=== PATIENT | female | born 1950 | race Caucasian/White ===

== ENCOUNTER 2018-10-25 06:42 | Day surgery (SDC) | payer MEDICARE, MEDICAID ==
[2018-10-25] MEDS ORDERED: PROPARACAINE 0.5% OPHTH DROPS 15 ML ONE (06:54)
[2018-10-25] MEDS ORDERED: CYCLOPENTOLATE 1% OPHTH DROPS 2 ML ONE (06:54)
[2018-10-25] MEDS ORDERED: PHENYLEPHRINE 2.5% OPHTH 2 ML DROPS ONE (06:54)
[2018-10-25] MEDS ORDERED: KETOROLAC 0.45% OPHTH DROPS ONE (06:54)
[2018-10-25] MEDS ORDERED: LACTATED RINGERS 500 ML IV ONE (07:04)
[2018-10-25] MEDS ORDERED: KETOROLAC 0.45% OPHTH DROPS RIGHTEYE ONE (07:04)
[2018-10-25] MEDS ORDERED: CYCLOPENTOLATE 1% OPHTH DROPS 2 ML RIGHTEYE ONE (07:04)
[2018-10-25] MEDS ORDERED: PHENYLEPHRINE 2.5% OPHTH 2 ML DROPS RIGHTEYE ONE (07:05)
[2018-10-25] MEDS ORDERED: EPINEPHrine 1 MG/ML AMP ONE (07:06)
[2018-10-25] MEDS ORDERED: TIMOLOL 0.5% OPHTH DROPS ONE (07:06)
[2018-10-25] MEDS ORDERED: BRIMONIDINE 0.2% OPHTH DROPS 5 ML ONE (07:06)
[2018-10-25] MEDS ORDERED: TRIAMCIN/MOXIFLOX OPHTHALMIC 0.6 ML VIAL IO ONE ×2 (07:06→08:03)
[2018-10-25] MEDS ORDERED: BSS/LIDOCAINE/EPINEPHRINE 1 ML SYRINGE ONE (07:07)
[2018-10-25] MEDS ORDERED: VANCOMYCIN OPHTHALMI 8MG/0.8ML 8 MG/0.8 ML SYRINGE IO ONE ×2 (07:07→08:03)
--- NOTE | 2018-10-25 07:21 | ANESTHESIA ---
Pre-Anesthesia VS, & Labs - Diagnosis senile combined cataract right - Procedure extraction cataract with lens implant Vital Signs: Temp Pulse Resp BP Pulse Ox 36.8 C 80 18 136/87 H 97 10/25/18 06:54 10/25/18 06:54 10/25/18 06:54 10/25/18 06:54 10/25/18 06:54 Height 5 ft 5 in Weight (kg) 81.1 kg - NPO >8 hours - Is Patient ?: Not Applicable Home Medications and Allergies Home Medications: Ambulatory Orders Atenolol 50 mg PO DAILY 10/24/18 Cholecalciferol [Vitamin D3] 5,000 unit PO DAILY 10/24/18 Citalopram Hydrobromide [Citalopram HBr] 40 mg PO DAILY 10/24/18 Lisinopril 40 mg PO DAILY 10/24/18 Atenolol 50 mg PO DAILY 10/24/18 Cholecalciferol [Vitamin D3] 5,000 unit PO DAILY 10/24/18 Citalopram Hydrobromide [Citalopram HBr] 40 mg PO DAILY 10/24/18 Lisinopril 40 mg PO DAILY 10/24/18 Allergies/Adverse Reactions: Allergies Allergy/AdvReac Type Severity Reaction Status Date / Time No Known Drug Allergies Allergy Verified 10/25/18 07:09 Anes History & Medical History - Anesthetic History Anesthesia Complications: reports: No previous complications Family history of Anesthesia Complications: Denies Family history of Malignant Hyperthermia: Denies - Medical History Cardiovascular: reports: Hypertension Pulmonary: reports: None Gastrointestinal: reports: None Urinary: reports: None Musculoskeletal: reports: Osteoarthritis Endocrine/Autoimmune: reports: None Skin: reports: None Psychosocial: reports: Depression, Anxiety - Surgical History General: Appendectomy Gynecologic: Hysterectomy, Other Exam General: Alert, Oriented x3, Cooperative, No acute distress Dental: WNL Mouth Openin Fingerbreadth Neck Mobility: Normal Mallampati classification: II Thyromental Distance: 4-6 cm Respiratory: Lungs clear, Normal breath sounds, No respiratory distress, No accessory muscle use Cardiovascular: Normal S1, Normal S2 Mental/Cognitive Status: Alert/Oriented X3, Normal for patient Plan Anesthesia Type: MAC Consent for Procedure(s) Verified and Reviewed: Yes Code Status: Attempt Resuscitation ASA classification: 2-Mild systemic disease Is this case an emergency?: No
[2018-10-25] MEDS ORDERED: EPINEPHrine 1 MG/ML AMP IVP ONE (08:02)
[2018-10-25] MEDS ORDERED: BRIMONIDINE 0.2% OPHTH DROPS 5 ML OPTH ONE (08:02)
[2018-10-25] MEDS ORDERED: CHONDR SULF/HYALURONATE SYRINGE IO ONE (08:02)
[2018-10-25] MEDS ORDERED: TIMOLOL 0.5% OPHTH DROPS OPTH ONE (08:02)
[2018-10-25] MEDS ORDERED: BSS/LIDOCAINE/EPINEPHRINE 1 ML SYRINGE IO ONE (08:03)
[2018-10-25] MEDS ORDERED: fentaNYL 100 MCG/2 ML VIAL IVP ONE (08:16)
[2018-10-25] MEDS ORDERED: MIDAZOLAM 2 MG/2 ML VIAL IVP ONE (08:16)
[2018-10-25 08:19] VITALS: BP 91/60
--- NOTE | 2018-10-25 10:47 | OPERATIVE REPORT ---
DATE OF SERVICE: 10/25/2018 Physician: Milton Cabral MD PREOPERATIVE DIAGNOSIS: Visually significant cataract, right eye. This was her first cataract surge ry. POSTOPERATIVE DIAGNOSIS: Visually significant cataract, right eye. This was her first cataract surg oscar. NAME OF PROCEDURE: Phacoemulsification with posterior chamber intraocular lens implant, right eye. SURGEON: Milton Cabral MD ANESTHESIA: Monitored anesthesia care. COMPLICATIONS: None. OPERATIVE INDICATIONS: This is a 68-year-old woman with progressive vision loss in the right eye due to a 3+ nuclear sclerotic and 3+ posterior subcapsular cataract. Best corrected visual acuity was 2 0/20, with glare to hand motion vision in the right eye. Indications for surgery are overall decreas e in vision, difficulty seeing words on a computer screen, difficulty reading, difficulty seeing stre et signs, difficulty driving in low light or at night, difficulty driving at night because of headlig hts from other vehicles, and difficulty with glare or bright lights in any situation. She was consen christi at length concerning risks and benefits of cataract surgery, after which she expressed a desire t o proceed with surgery. OPERATIVE PROCEDURE: The patient was taken to OR #3 and placed under monitored anesthesia care. A s urgical timeout was conducted confirming correct patient, correct procedure, and correct surgical sit e. She was given topical anesthesia, and then prepped and draped in the usual sterile fashion. The eye was entered at the 12 and 9 o'clock positions. Intracameral Shugarcaine was injected into the an terior chamber, followed by Viscoat. A continuous-tear curvilinear capsulorrhexis was performed. Th e nucleus was hydrodissected and phacoemulsified. The cortex was evacuated using the automated infus ion and aspiration. Provisc was injected in the capsular bag, and a 22.0 diopter intraocular lens in serted in the bag. Approximately 0.8 mL of a mixture of triamcinolone, moxifloxacin and vancomycin w as injected subconjunctivally in the superior quadrant for infection and inflammation prophylaxis. I and A was used to evacuate the viscoelastic materials. The eye was inflated to physiologic pressure using balanced salt solution, and found to be watertight. The patient was taken from the operating room in good condition and given postop instructions. TD: 10/25/2018 08:28
== END 2018-10-25 06:43 | disposition home or self-care (01) ==
LOC: SDS 06:42
PROVIDERS: ATTEND Ophthalmology
PROC: 08RJ3JZ Replacement of Right Lens with Synthetic Substitute, Percutaneous Approach (ICD-10-PCS; principal; 2018-10-25 08:00)
DX: H25.811 Combined forms of age-related cataract, right eye (principal); I10 Essential (primary) hypertension; F17.200 Nicotine dependence, unspecified, uncomplicated
CPT/HCPCS: 66984; A9270; J3490; V2632

== ENCOUNTER 2018-12-27 06:34 | Day surgery (SDC) | payer MEDICARE, MEDICAID ==
[~2018-12-27 06:34] MED LIST: CYCLOPENTOLATE 1% OPHTH DROPS 2 ML ONE; KETOROLAC 0.45% OPHTH DROPS ONE; PHENYLEPHRINE 2.5% OPHTH 2 ML DROPS ONE; PROPARACAINE 0.5% OPHTH DROPS 15 ML ONE
[2018-12-27] MEDS ORDERED: LACTATED RINGERS 500 ML IV ONE (06:38)
[2018-12-27] MEDS ORDERED: PHENYLEPHRINE 2.5% OPHTH 2 ML DROPS LEFTEYE ONE (06:55)
[2018-12-27] MEDS ORDERED: CYCLOPENTOLATE 1% OPHTH DROPS 2 ML LEFTEYE ONE (06:55)
[2018-12-27] MEDS ORDERED: KETOROLAC 0.45% OPHTH DROPS LEFTEYE ONE (06:55)
[2018-12-27] MEDS ORDERED: PROPARACAINE 0.5% OPHTH DROPS 15 ML LEFTEYE ONE ×2 (06:55→08:04)
[2018-12-27] MEDS ORDERED: TIMOLOL 0.5% OPHTH DROPS ONE (07:11)
[2018-12-27] MEDS ORDERED: BRIMONIDINE 0.2% OPHTH DROPS 5 ML ONE (07:11)
[2018-12-27] MEDS ORDERED: BSS/LIDOCAINE/EPINEPHRINE 1 ML SYRINGE ONE (07:11)
[2018-12-27] MEDS ORDERED: TRIAMCIN/MOXIFLOX OPHTHALMIC 0.6 ML VIAL IO ONE ×2 (07:11→08:07)
[2018-12-27] MEDS ORDERED: VANCOMYCIN OPHTHALMI 8MG/0.8ML 8 MG/0.8 ML SYRINGE IO ONE ×2 (07:11→08:06)
--- NOTE | 2018-12-27 07:19 | ANESTHESIA ---
Pre-Anesthesia VS, & Labs - Diagnosis L senile combined cataract - Procedure L extraction cataract with IOL Vital Signs: Temp Pulse Resp BP Pulse Ox 36.8 C 77 16 176/97 H 96 12/27/18 06:39 12/27/18 06:39 12/27/18 06:39 12/27/18 06:39 12/27/18 06:39 Height 5 ft 5 in Weight (kg) 83 kg - NPO >8 hours - Is Patient ?: No Home Medications and Allergies Atenolol 50 mg PO DAILY 10/24/18 Cholecalciferol [Vitamin D3] 5,000 unit PO DAILY 10/24/18 Citalopram Hydrobromide [Citalopram HBr] 40 mg PO DAILY 10/24/18 Lisinopril 40 mg PO DAILY 10/24/18 Allergies/Adverse Reactions: Allergies Allergy/AdvReac Type Severity Reaction Status Date / Time No Known Drug Allergies Allergy Verified 10/25/18 07:09 Anes History & Medical History - Anesthetic History Anesthesia Complications: reports: No previous complications Family history of Anesthesia Complications: Denies Family history of Malignant Hyperthermia: Denies - Medical History Cardiovascular: reports: Hypertension Pulmonary: reports: None Gastrointestinal: reports: None Urinary: reports: None Musculoskeletal: reports: Osteoarthritis Endocrine/Autoimmune: reports: None Skin: reports: None Smoking Status: Current every day smoker - Surgical History General: Appendectomy Eyes Ears Nose Throat (EENT): Cataracts Gynecologic: Hysterectomy, Other Exam General: Alert, Oriented x3, Cooperative Dental: WNL Mouth Openin Fingerbreadth Mallampati classification: II Thyromental Distance: 4-6 cm Respiratory: Lungs clear, Normal breath sounds Cardiovascular: Regular rate Neurological: Normal speech Mental/Cognitive Status: Alert/Oriented X3, Normal for patient Plan Anesthesia Type: MAC Consent for Procedure(s) Verified and Reviewed: Yes Code Status: Attempt Resuscitation ASA classification: 2-Mild systemic disease Is this case an emergency?: No
[2018-12-27] MEDS ORDERED: BRIMONIDINE 0.2% OPHTH DROPS 5 ML OPTH ONE (08:05)
[2018-12-27] MEDS ORDERED: EPINEPHrine 1 MG/ML AMP IVP ONE (08:05)
[2018-12-27] MEDS ORDERED: CHONDR SULF/HYALURONATE SYRINGE IO ONE (08:05)
[2018-12-27] MEDS ORDERED: TIMOLOL 0.5% OPHTH DROPS OPTH ONE (08:05)
[2018-12-27] MEDS ORDERED: BSS/LIDOCAINE/EPINEPHRINE 1 ML SYRINGE IO ONE (08:06)
[2018-12-27] MEDS ORDERED: MIDAZOLAM 2 MG/2 ML VIAL IVP ONE (08:10)
[2018-12-27 08:55] VITALS: BP 102/61
--- NOTE | 2018-12-27 09:41 | OPERATIVE REPORT ---
DATE OF SERVICE: 12/27/2018 Physician: Milton Cabral MD PREOPERATIVE DIAGNOSIS: Visually significant cataract, left eye. Cataract surgery was performed on the right eye on 25 October 2018. POSTOPERATIVE DIAGNOSIS: Visually significant cataract, left eye. Cataract surgery was performed on the right eye on 25 October 2018. PROCEDURE: Phacoemulsification with posterior chamber intraocular lens implant, left eye. SURGEON: Milton Cabral MD ANESTHESIA: Monitored anesthesia care. COMPLICATIONS: None. OPERATIVE INDICATIONS: This is a 68-year-old woman with progressive vision loss in the left eye due to 3+ nuclear sclerotic and vacuole cataract. Best corrected visual acuity was 20/20, with glare to 20/400 in the left eye. Indications for surgery were difficulty seeing words on the computer screen and difficulty reading. She was consented at length concerning risks and benefits of cataract surgery, after which she expressed a desire to proceed with surgery. OPERATIVE PROCEDURE: Patient was taken to OR #3 and placed under monitored anesthesia care. A surgical timeout was conducted confirming the correct patient, correct procedure, and correct surgical site. She was given topical anesthesia, and then prepped and draped in the usual sterile fashion. The eye was entered at the 6 and 3-o'clock positions. Intracameral Shugarcaine was injected into the anterior chamber, followed by Viscoat. A continuous-tear curvilinear capsulorrhexis was performed. The nucleus was hydrodissected and phacoemulsified. The cortex was evacuated using automated infusion and aspiration. Provisc was injected into the capsular bag and a 23.0-diopter intraocular lens inserted in the bag. Approximately 0.8 mL of a mixture of triamcinolone, moxifloxacin, and vancomycin was injected subconjunctivally in the superior quadrant for infection and inflammation prophylaxis. I and A was used to evacuate the viscoelastic materials. The eye was inflated to physiologic pressure using balanced salt solution and found to be watertight. Patient was taken from the operating room in good condition and given postop instructions. TD: 12/27/2018 08:30 REVISED TEXT/DATES jll12/31/18 ORIG. signed 12/28/2018@0825 MTDD
== END 2018-12-27 06:35 | disposition home or self-care (01) ==
LOC: SDS 06:34
PROVIDERS: ATTEND Ophthalmology
PROC: 08RK3JZ Replacement of Left Lens with Synthetic Substitute, Percutaneous Approach (ICD-10-PCS; principal; 2018-12-27 10:00)
DX: H25.812 Combined forms of age-related cataract, left eye (principal); I10 Essential (primary) hypertension; M19.90 Unspecified osteoarthritis, unspecified site; F17.200 Nicotine dependence, unspecified, uncomplicated; F41.9 Anxiety disorder, unspecified; F32.9 Major depressive disorder, single episode, unspecified
CPT/HCPCS: 66984; A9270; J3490; V2632

== ENCOUNTER 2019-01-31 13:42 | Outpatient (CLI) | payer MEDICARE, MEDICAID ==
--- NOTE | 2019-02-02 15:04 | CT Report ---
Reason: PREVENTIVE CARE,PERSONAL HISTORY OF NICOTINE DEPEN Procedure Date: 01/31/2019 Accession Number: [id number] / [id number] Procedure: CT - Low Dose Lung Cancer Screen CPT Code: FULL RESULT: EXAM CT LUNG SCREEN EXAM DATE: 01/31/2019 02:20 PM. HISTORY: 68-year-old patient with 30+-pack-year smoking history. Currently smoking: Yes. COMPARISON: None. TECHNIQUE: CT examination of the entire thorax without contrast was performed using low-dose technique. Thin section coronal, axial, sagittal and MIP axial images were obtained. In accordance with CT protocol optimization, one or more of the following dose reduction techniques were utilized for this exam: automated exposure control, adjustment of mA and/or KV based on patient size, or use of iterative reconstructive technique. FINDINGS: Nodules: Right upper lobe: 2 mm solid nodule (4/31) 2 mm solid nodule (4/43) Anterolateral subpleural nodular opacity measuring 10 x 6 mm (4/70) has appearance of linear scarring/atelectasis on orthogonal views, appears to be associated with the minor fissure. Right middle lobe: None. Right lower lobe: 4 mm nodular opacity abutting the major fissure (4/87), likely perifissural lymph node. Left upper lobe: There is a linear left upper lobe/lingular scarring/atelectasis. No discrete nodules. Left lower lobe: None. Emphysema: None. Pleura: Unremarkable. Aorta: Mild ascending aortic ectasia measuring up to 41 mm. Scattered mild atherosclerotic calcification. Mediastinum: Heart size is normal. No lymphadenopathy. Coronary calcifications: Minimal. Other pulmonary findings: None. Other extrapulmonary findings: Right breast surgical clips. IMPRESSION: Lung-RADS ASSESSMENT CATEGORY: 2 - Benign appearance or behavior. Probability of malignancy: <1% RECOMMENDATION: Continue annual screening with low-dose chest CT in 12 months. RADIA
--- NOTE | 2019-02-04 08:28 | DEXA Report ---
Reason: PREVENTIVE CARE,PERSONAL HISTORY OF NICOTINE DEPEN Procedure Date: 01/31/2019 Accession Number: [id number] / [id number] Procedure: DEX - Dexa Spine and/or Hip CPT Code: FULL RESULT: EXAM: Dexa Spine and/or Hip DATE: 01/31/2019 2:08 PM CLINICAL HISTORY: PREVENTIVE CARE,PERSONAL HISTORY OF NICOTINE DEPEN TECHNIQUE: Dual energy x-ray absorptiometry (DXA) was performed on a [employer]. Regions measured are the AP Spine, femoral neck, and if needed forearm. COMPARISON: None. In accordance with the International Society for Clinical Densitometry (ISCD) guidelines, data from previous exams may be reanalyzed using current recommendations and techniques. This is done to allow a more accurate basis for comparison with the current study. FINDINGS: The data for the lumbar spine is as follows: BMD (g/cm/cm) T-SCORE Z-SCORE REGION L1 0.924 -1.7 -0.7 L2 1.083 -1.0 0.1 L3 1.149 -0.4 0.6 L4 1.166 -0.3 0.8 TOTAL 1.086 -0.8 0.3 NOTE: All evaluable vertebrae are used for classification The data for the hip is as follows: BMD (g/cm/cm) T-SCORE Z-SCORE REGION Neck 0.890 -1.1 0.1 TOTAL 0.969 -0.3 0.6 NOTE: The femoral neck or total proximal femur, whichever is lowest, is used for classification. IMPRESSION: THE WHO CLASSIFICATION BASED ON THE INTERNATIONAL REFERENCE STANDARD IS OSTEOPENIA. THE FRACTURE RISK IS INCREASED. RECOMMENDATION: Patients with diagnosis of osteoporosis or osteopenia should have regular bone mineral density assessment. For those eligible for Medicare, routine testing is allowed once every 2 years. Testing frequency can be increased for patients who have rapidly progressing disease or for those who are receiving medical therapy to restore bone mass. COMMENT: World Health Organization (WHO) definitions for osteoporosis and osteopenia: NORMAL BMD: T-score at -1.0 or higher, fracture risk is low OSTEOPENIA BMD: T-score between -1.0 and -2.5, fracture risk is increased. OSTEOPOROSIS BMD: T-score at -2.5 or lower, fracture risk is high. National Osteoporosis Foundation recommends: 1. Obtain adequate dietary calcium (at least 1200 mg per day) and vitamin D (400-800 international units per day). 2. Participate, as appropriate, in regular weightbearing and muscle-strengthening exercise. 3. Avoid tobacco use and reduce alcohol and caffeine intake. 4. For more detailed information see the website at www.NOF.org.
== END 2019-01-31 13:43 | disposition home or self-care (01) ==
LOC: DI 13:42
PROVIDERS: ATTEND Registered Nurse
DX: M85.89 Other specified disorders of bone density and structure, multiple sites (principal); Z78.0 Asymptomatic menopausal state; Z12.2 Encounter for screening for malignant neoplasm of respiratory organs; F17.210 Nicotine dependence, cigarettes, uncomplicated
CPT/HCPCS: 77080; G0297